=== PATIENT | female | born 1950 | race Two or more races ===

== ENCOUNTER → 2016-10-01 | Outpatient (CLI) | payer MEDICARE, OTHER ==
[~2016-10-01] VITALS: Ht 154.9 cm; Wt 54.4 kg
[~2016-10-01] MED LIST: UNOBMED
[2016-10-01 09:45] VITALS: BP 109/64
--- NOTE | 2016-10-01 10:23 | GI Initial Consult Note ---
History of Present Illness General Date patient seen: Oct 01, 2016 Time patient seen: 10:17 Referring physician: MORRIS CARDOZA Reason for Consultation: ANEMIA Present Illness HPI 66 year old female patient referred by Dr. Mcfadden for anemia evaluation. The patient presents today with anemia, c/o of black stools and weight loss over 30 lbs. No signs of abuse/neglect. Home Meds Reported Medications Unable to Obtain Medications (UNABLE TO OBTAIN MEDS) 1 Ea Ea 10/01/16 Allergies: Coded Allergies: No Known Allergies (Unverified , 10/01/16) Patient History Limited by: other - forgetfulness History Provided By: Patient PMH Narrative memory disturbance dementia constipation PSHx brain surgery Family History Narrative n/a Social History: Denies: alcohol use, drug use, other, smoking Review of Systems All Other Systems: negative except mentioned in HPI Physical Exam Vital Signs Date Time Temp Pulse Resp B/P Pulse Ox O2 Delivery O2 Flow Rate FiO2 10/01/16 09:45 98.1 63 16 109/64 98 Sp02 EP Interpretation: reviewed General Appearance: well appearing, no apparent distress, alert Head: normocephalic EENT: normal ENT inspection Neck: full range of motion, supple Respiratory: normal breath sounds, no respiratory distress Cardiovascular: normal rate Gastrointestinal: soft, normal bowel sounds Rectal: black stool Musculoskeletal: back normal Neurologic: normal inspection, alert, oriented x3, responsive Psychiatric: normal inspection, judgement/insight normal Skin: normal inspection, normal color, no rash, warm/dry Lymphatic: normal inspection, no adenopathy GI: Plan Problems: (1) Excessive weight loss (2) Anemia (3) Melena (4) Colonoscopy planned Plan EGD/colonoscopy scheduled for tomorrow 10/02/16. - CLD & [employer] prep instructions given. Seen with Dr. Birmingham. Thank you for referring this kind patient. Annika Shannon N.P. Oct 01, 2016 10:23
== END | disposition home or self-care (01) ==
LOC: PAN 09:29
DX: D64.9 Anemia, unspecified (principal); R63.4 Abnormal weight loss; K92.1 Melena; G30.9 Alzheimer's disease, unspecified; F02.80 Dementia in other diseases classified elsewhere, unspecified severity, without behavioral disturbance, psychotic disturbance, mood disturbance, and anxiety
CPT/HCPCS: 99201

== ENCOUNTER → 2016-10-02 | Day surgery (SDC) | payer MEDICARE, OTHER ==
[2016-10-02] VITALS (8 sets, daily range): BP systolic 125–139; BP diastolic 63–96
[~2016-10-02] VITALS: Ht 157.5 cm; Wt 54.5 kg
--- NOTE | 2016-10-02 09:47 | Pre-Procedure Note/Attestation ---
Pre-Procedure Note/Attestation Complete Prior to Procedure Planned Procedure: not applicable Procedure Narrative: egd/colon Indications for Procedure Pre-Operative Diagnosis: anemia, wt loss, screening colon Attestation I attest that I discussed the nature of the procedure; its benefits; risks and complications; and alternatives (and the risks and benefits of such alternatives ), prior to the procedure, with the patient (or the patient's legal veterans employment representative). I attest that, if there was a reasonable possibility of needing a blood transfusion, the patient (or the patient's legal veterans employment representative) was given the [facility] standardized written summary, pursuant to the [place] Blood Safety Act ([place] Health and Safety Code # 1645, as amended). I attest that I re-evaluated the patient just prior to the surgery and that there has been no change in the patient's H&P, except as documented below: GABI HEADLEY Oct 02, 2016 09:47
[2016-10-02 10:05] LABS: BASOPHILS % (AUTO) 0.8 % (0.0-2.0); EOSINOPHILS % (AUTO) 1.1 % (0.0-3.0); LYMPHOCYTES % (AUTO) 31.4 % (20.0-45.0); MEAN CORPUSCULAR HEMOGLOBIN 29.5 PG (27.0-31.0); MEAN CORPUSCULAR HGB CONC 31.7 G/DL (32.0-36.0); MEAN CORPUSCULAR VOLUME 93 FL (80-99); MEAN PLATELET VOLUME 7.1 FL (6.5-10.1); MONOCYTES % (AUTO) 6.5 % (1.0-10.0); NEUTROPHILS % (AUTO) 60.2 % (45.0-75.0); PLATELET COUNT 245 K/UL (150-450); RED BLOOD COUNT 4.35 M/UL (4.20-5.40); RED CELL DISTRIBUTION WIDTH 13.3 % (11.6-14.8)
[2016-10-02 10:13] LABS: ALANINE AMINOTRANSFERASE 11 U/L (3-33); ALBUMIN/GLOBULIN RATIO 1.4 (1.0-2.7); AMYLASE 41 U/L (10-110); ANION GAP 17 (5-15); ASPARTATE AMINO TRANSFERASE 17 U/L (5-40); CALCIUM 9.4 mg/dL (8.6-10.2); CARBON DIOXIDE 23 mEQ/L (20-30); CHLORIDE 102 mEQ/L (98-107); CREATININE 0.8 mg/dL (0.5-0.9); GLOMERULAR FILTRATION RATE > 60 mL/min (>60); HEMOLYSIS 9; LIPASE 23 U/L (< 60); POTASSIUM 3.2 mEQ/L (3.4-4.9); SODIUM 142 mEQ/L (135-145); TOTAL PROTEIN 6.9 g/dL (6.6-8.7)
--- NOTE | 2016-10-02 11:39 | Anethesia Preoperative Eval ---
Anesthesia Pre-op PMH/ROS General Date of Evaluation: Oct 02, 2016 Time of Evaluation: 11:19 ASA Score: ASA 2 Mallampati Score Class I : Soft palate, uvula, fauces, pillars visible Class II: Soft palate, uvula, fauces visible Class III: Soft palate, base of uvula visible Class IV: Only hard plate visible Mallampati Classification: Class I Allergies: Coded Allergies: No Known Allergies (Unverified , 10/01/16) Past Medical History Cardiovascular: Reports: HTN Gastrointestinal/Genitourinary: Reports: GERD Neurologic/Psychiatric: Reports: dementia Anesthesia Pre-op Phys. Exam Physician Exam Last Vital Signs Date Time Temp Pulse Resp B/P Pulse Ox O2 Delivery O2 Flow Rate FiO2 10/02/16 10:18 97.2 64 20 127/67 100 Room Air Anesthesia Pre-op A/P Labs Hematology Test 10/02/16 09:50 White Blood Count 7.0 K/UL (4.8-10.8) Red Blood Count 4.35 M/UL (4.20-5.40) Hemoglobin 12.8 G/DL (12.0-16.0) Hematocrit 40.4 % (37.0-47.0) Mean Corpuscular Volume 93 FL (80-99) Mean Corpuscular Hemoglobin 29.5 PG (27.0-31.0) Mean Corpuscular Hemoglobin Concent 31.7 G/DL (32.0-36.0) L Red Cell Distribution Width 13.3 % (11.6-14.8) Platelet Count 245 K/UL (150-450) Mean Platelet Volume 7.1 FL (6.5-10.1) Neutrophils (%) (Auto) 60.2 % (45.0-75.0) Lymphocytes (%) (Auto) 31.4 % (20.0-45.0) Monocytes (%) (Auto) 6.5 % (1.0-10.0) Eosinophils (%) (Auto) 1.1 % (0.0-3.0) Basophils (%) (Auto) 0.8 % (0.0-2.0) Chemistry Test 10/02/16 09:50 Sodium Level 142 mEQ/L (135-145) Potassium Level 3.2 mEQ/L (3.4-4.9) L Chloride Level 102 mEQ/L (98-107) Carbon Dioxide Level 23 mEQ/L (20-30) Anion Gap 17 (5-15) H Blood Urea Nitrogen 14 mg/dL (7-23) Creatinine 0.8 mg/dL (0.5-0.9) Estimat Glomerular Filtration Rate > 60 mL/min (>60) Glucose Level 96 mg/dL (74-106) Calcium Level 9.4 mg/dL (8.6-10.2) Total Bilirubin 0.8 mg/dL (0.0-1.2) Aspartate Amino Transf (AST/SGOT) 17 U/L (5-40) Alanine Aminotransferase (ALT/SGPT) 11 U/L (3-33) Alkaline Phosphatase 68 U/L (35-104) Total Protein 6.9 g/dL (6.6-8.7) Albumin 4.1 g/dL (3.5-5.2) Globulin 2.8 g/dL Albumin/Globulin Ratio 1.4 (1.0-2.7) Amylase Level 41 U/L (10-110) Lipase 23 U/L (< 60) Carcinoembryonic Antigen 7.1 ng/mL H CA 19-9 Antigen 0.600 U/mL (< 37) Angela Mayer MD Oct 02, 2016 11:39
--- NOTE | 2016-10-02 11:42 | Endoscopy Procedure Note ---
Endoscopy Procedure Note Indication for Procedure: abd pain, wt loss Procedures Performed: EGD, colonoscopy Operative Findings/Diagnosis: gastric polyp, large polyp cecum Specimen: yes Pt Tolerated Procedure Well: Yes Estimated Blood Loss: none Anesthesiologist: gilda Anesthesia: MAC Implant(s) used?: No 50 yrs or older w/o bx or poly: No 10yrs. F/U not recommended: Yes If not recommended, why?: Above average risk 10 yrs. F/U needed: Yes 18 years or older w/prev. colo: No GABI HEADLEY Oct 02, 2016 11:42
--- NOTE | 2016-10-02 12:23 | Immediate Post-Op Evaluation ---
Immediate Post-Op Evalulation Immediate Post-Op Evalulation Procedure: egd colon Date of Evaluation: Oct 02, 2016 Time of Evaluation: 12:22 Nausea: No Vomiting: No Angela Mayer MD Oct 02, 2016 12:23
--- NOTE | 2016-10-02 21:17 | Procedure Note ---
DATE OF PROCEDURE: 10/02/2016 SURGEON: Brian Birmingham M.D. PROCEDURE: Upper endoscopy with biopsy and snare polypectomy and colonoscopy with snare polypectomy. ANESTHESIOLOGIST: Mena King M.D. INSTRUMENT: Olympus adult flexible upper endoscope and colonoscope. INDICATION: Weight loss, abdominal pain, and screening colonoscopy evaluation. REASON FOR PROCEDURE: The procedure, risks, benefits, and possible consequences, including hemorrhage, aspiration, perforation and infection, and alternative treatments, were explained to the patient/legal guardian by Dr. Brian Birmingham and the patient/legal guardian understood and accepted these risks. DESCRIPTION OF PROCEDURE: After informed consent was obtained and the patient was adequately sedated, Olympus upper endoscope was advanced from mouth into the second portion of the duodenum and retroflexion was performed in the stomach. The patient has diffuse atrophic gastritis. Right below the GE junction in the cardia of the stomach, there was about a centimeter pedunculated polyp, which was removed with the snare polypectomy technique. At this time, the upper endoscope was retrieved and the patient was turned over for colonoscopy. First a rectal exam was performed, which was normal. Then, the scope was advanced from the rectum into the cecum documented by appendiceal orifice, ileocecal valve, and right upper quadrant palpation. The patient had a very large sessile polyp in the cecum, roughly measured between 5 to 6 cm in size. This polyp was removed with piecemeal necrosis in fashion. This took a long, long time to do this procedure given this polyp was very large and retrieving the polyp was not easy, either we have to use a Sunshine net and even Sunshine net cut half of the polyp in the abdomen with pulling it out, so we had to go back again and remove the rest of the polyp, but overall, we were able to remove successfully the large polyp from the cecum. The patient tolerated the procedure well without any complication. Retroflexion of rectum showed evidence of internal hemorrhoids. SUMMARY OF FINDINGS: 1. Atrophic gastritis. 2. One gastric polyp removed, see above for details. 3. Very large colonic polyp from the cecum removed. RECOMMENDATIONS: Follow pathology results. The pathology showed no evidence of any malignancy. Given the size of this polyp, the patient might benefit from a repeat colonoscopy sooner than later or may be in one year or three years. Brian Birmingham M.D. DR: GERARDO JOB#: [id number] CC:
== END | disposition home or self-care (01) ==
LOC: GAS 08:49
DX: Z12.11 Encounter for screening for malignant neoplasm of colon (principal); D12.0 Benign neoplasm of cecum; K63.5 Polyp of colon; K92.1 Melena; K29.40 Chronic atrophic gastritis without bleeding; K31.7 Polyp of stomach and duodenum; R63.4 Abnormal weight loss; D64.9 Anemia, unspecified; I10 Essential (primary) hypertension; K21.9 Gastro-esophageal reflux disease without esophagitis; F03.90 Unspecified dementia, unspecified severity, without behavioral disturbance, psychotic disturbance, mood disturbance, and anxiety
CPT/HCPCS: 36415; 80053; 82150; 82378; 83690; 85025; 86301; 93005; 94003; 94150

== ENCOUNTER 2018-08-10 15:42 | Outpatient (CLI) | payer MEDICARE, OTHER ==
[2018-08-11 08:24] VITALS: BP 112/58
--- NOTE | 2018-08-11 19:15 | Consultation ---
DATE OF CONSULTATION: 08/10/2018 CONSULTING PHYSICIAN: Brian Birmingham M.D. CHIEF COMPLAINT: Melena. HISTORY OF PRESENT ILLNESS: This is a 68-year-old female, known to me in 2017. I did endoscopy and colonoscopy where endoscopy showed evidence of atrophic gastritis. She had one polyp removed from the stomach, which was noncancerous, then she had a very large colonic polyp, which showed tubulovillous adenoma. She was offered to have colonoscopy in a year. She never came back. She came back yesterday complaining of black tarry stools. The patient is very difficult to communicate with. Apparently, she had a recent brain surgery. I see evidence of surgery. When I asked her, she cannot explain to me exactly what kind of brain surgery she had. I have to explain the same thing to her almost 3-4 times and then she will ask the same questions, so I am not exactly sure if she understands. Even though I speak her language, I am not sure if she understood what I am explaining to her. The patient needed endoscopy and colonoscopy, colonoscopy because she had large polyps and endoscopy because she is having black tarry stools. PAST MEDICAL HISTORY: History of polyps, colonic polyp, gastric polyp, atrophic gastritis, recent brain surgery, and questionable psychiatric disorder. PAST SURGICAL HISTORY: Craniotomy. ALLERGIES: No known drug allergies. MEDICATIONS: Please see medication reconciliation list. SOCIAL HISTORY: The patient denies any tobacco, alcohol, or illicit drug abuse. She never got . She does not have any kids. REVIEW OF SYSTEMS: A 10-point review of systems was performed and pertinent positives in the HPI. PHYSICAL EXAMINATION: GENERAL: Mildly pale-looking female. HEENT: Normocephalic and atraumatic. There is evidence of brain surgery on the right side of the scalp. NECK: Supple. No obvious evidence of lymphadenopathy. CARDIOVASCULAR: Regular rhythm. Plus S1 and S2. LUNGS: Clear to auscultation bilaterally. ABDOMEN: Positive bowel sounds. Soft and nontender. No rebound. No guarding. No peritoneal sign. EXTREMITIES: No cyanosis, no clubbing, no edema. ASSESSMENT AND PLAN: This is a 68-year-old female with history of large colonic polyp, gastric polyp, gastritis, now with sign and symptoms of GI bleeding. I really wanted this patient to get an endoscopy and colonoscopy PATRIC. I offered her to be admitted to the emergency room and get admitted to the hospital and get it done tomorrow, but the patient adamantly refuses. I tried to call the family. She provided phone number of a brother, which I had called and it was not a correct number. She states she cannot recall her brother's phone number. I called the primary care physician, Dr. Mcfadden, and left a message. The patient did not want to be admitted to the hospital. We offered endoscopy and colonoscopy. She wanted it to be scheduled next Friday. I gave her the prep, but I am honestly do not think she understood what I am talking about, as she was asking the same questions multiple times, so our plan will be to keep her on the schedule for the next week, but meanwhile, I am going to continue calling the phone numbers that I have available for the family and for the primary care physician and see if they can communicate with her brother and convince her to come to the hospital to get this procedure done sooner. I want to thank Dr. Mcfadden for this consult. Brian Birmingham M.D. DR: GINA JOB#: [id number] CC: Rosendo Mcfadden M.D.
== END 2018-08-10 17:42 | disposition home or self-care (01) ==
LOC: PAN 15:42
DX: K92.2 Gastrointestinal hemorrhage, unspecified (principal); Z87.19 Personal history of other diseases of the digestive system; Z98.890 Other specified postprocedural states
CPT/HCPCS: 99202